=== PATIENT | female | born 1965 | race Two or more races ===

== ENCOUNTER 2019-04-17 19:14 | Emergency (ER) | payer OTHER ==
[~2019-04-17] VITALS: Ht 162.6 cm; Wt 88.5 kg
[2019-04-17 19:30] VITALS: BP 135/75
--- NOTE | 2019-04-17 19:30 | NUR ---
ED Nurse Note: Pt walked in to ED c/o abdominal pain radiates to right back area since ealier today. Denies nausea/ vomiting/ diarrhea. Afebrile. VSS.
--- NOTE | 2019-04-17 19:39 | Emergency Room Report ---
History of Present Illness General Chief Complaint: Abdominal Pain Source: Patient Present Illness HPI Patient 53-year-old female presents after increased abdominal pain. She reports having onset of symptoms approximate 15 minutes after eating. Prior history of gallstones. She denies any vomiting. She reports having taken ibuprofen for pain without any improvement. She denies any fever recently. Denies any vomiting or change in bowel habits. Reports having increased abdominal distention. She had not had any previous gallbladder surgery.Patient had eaten spaghetti immediately prior to onset of symptoms. Allergies: Coded Allergies: No Known Allergies (Unverified , 04/17/19) Patient History Past Medical History: see triage record Last Menstrual Period: na Now: No Reviewed Nursing Documentation: PMH: Agreed; PSxH: Agreed Nursing Documentation-PMH Past Medical History: No History, Except For Hx Cardiac Problems: No Hx Hypertension: No Hx Pacemaker: No Hx Asthma: No Hx Diabetes: Yes Hx Cancer: No Hx Gastrointestinal Problems: No Hx Dialysis: No History Of Psychiatric Problem: No Hx Neurological Problems: No Hx Cerebrovascular Accident: No Hx Seizures: No Review of Systems All Other Systems: negative except mentioned in HPI Physical Exam Vital Signs Date Time Temp Pulse Resp B/P (MAP) Pulse Ox O2 Delivery O2 Flow Rate FiO2 04/17/19 19:25 98.2 71 17 135/75 (95) Room Air Sp02 EP Interpretation: reviewed, normal General Appearance: normal inspection, well appearing, no apparent distress, alert, GCS 15 Head: atraumatic ENT: normal ENT inspection, hearing grossly normal, normal voice Neck: normal inspection, full range of motion, supple, no bony tend Respiratory: normal inspection, lungs clear, normal breath sounds, no respiratory distress, no retraction, no wheezing Cardiovascular #1: regular rate, rhythm, no edema Gastrointestinal: normal inspection, normal bowel sounds, non tender, soft, no guarding, no hernia Genitourinary: no CVA tenderness Musculoskeletal: normal inspection, back normal, normal range of motion Neurologic: alert, motor strength/tone normal, steel handler III-XII nml as tested, oriented x3, responsive, speech normal, normal inspection Psychiatric: normal inspection, judgement/insight normal, mood/affect normal Medical Decision Making Diagnostic Impression: Primary Impression: Nonspecific abdominal pain ER Course Patient presented for abdominal pain. Differential diagnoses included ischemic bowel, appendicitis, perforated viscus, abdominal aortic aneurysm, inferior myocardial infarction, viral gastroenteritis among others. patient has a benign exam and does not appear to require any imaging or laboratory testing at this time. Patient is given a GI cocktail. She was noted to have improvement in symptoms after medications. Patient appears to have a benign clinical picture will be discharged home. The patient is advised to follow up with primary care doctor in 1-2 days. Patient is advised to return if any worsening condition or if any changes in status that are concerning. This report is dictated with [employer] contract software which may occasionally lead to discrepancies related to use of this software. Last Vital Signs Date Time Temp Pulse Resp B/P (MAP) Pulse Ox O2 Delivery O2 Flow Rate FiO2 04/17/19 19:25 98.2 71 17 135/75 (95) Room Air Status: improved Disposition: HOME, SELF-CARE Scripts Omeprazole (OMEPRAZOLE) 20 Mg Capsule. 20 MG ORAL DAILY, #30 CAP Prov: Kwan Iraheta MD 04/17/19 Dicyclomine Hcl* (DICYCLOMINE HCL*) 10 Mg Capsule 10 MG ORAL QID, #20 CAP Prov: Kwan Iraheta MD 04/17/19 Kwan Iraheta MD Apr 17, 2019 19:39
--- NOTE | 2019-04-17 19:42 | NUR ---
ED Nurse Note: ERMD at bedside
[2019-04-17] MEDS ORDERED: Dicyclomine HCl 10mg/5ml oral soln ORAL ONE (19:45)
[2019-04-17] MEDS ORDERED: Lidocaine 2% Visc 15ml soln ORAL ONE (19:45)
[2019-04-17] MEDS ORDERED: OMEPRAZOLE20 M2 ORAL (22:09)
[2019-04-17] MEDS ORDERED: DICYCLOMINE HCL10 MG ORAL (22:09)
[2019-04-17 22:22] VITALS: BP 135/75
--- NOTE | 2019-04-17 22:22 | NUR ---
ED Nurse Note: Pt cleared by health care Provider for discharge. DC instructions/prescription was given and explained to pt. pt verbalized understanding of teachings. All medical deviecs such as ID band removed. Pt is AAO x4, ambulatory and left with all personal belongings.
== END 2019-04-17 22:22 | disposition home or self-care (01) ==
LOC: EMR 21:58
DX: R10.9 Unspecified abdominal pain (principal); E11.9 Type 2 diabetes mellitus without complications
CPT/HCPCS: 99282